=== PATIENT | female | born 1970 | race Two or more races ===

== ENCOUNTER 2021-07-24 05:49 | Inpatient (IN) | payer OTHER, MEDICAID ==
[~2021-07-24] VITALS: Ht 160 cm; Wt 102.1 kg
[2021-07-24] MEDS ORDERED: IPRATROPIUM BROMIDE (0.02%) 0.5MG/2.5ML NEB HHN STA (06:20)
[2021-07-24] MEDS ORDERED: NITROGLYCERIN OINT 1GM/INCH UDPKT TD ONE (06:30)
[2021-07-24 08:04] LABS: HEMOGLOBIN. 11.7 g/dL (12.0-16.0); MEAN CORPUSCULAR HEMOGLOBIN 21.3 pg (28.0-32.0); MEAN CORPUSCULAR VOLUME 67.4 fL (81.0-99.0); RED CELL DISTRIBUTION WIDTH 16.5 % (11.6-14.6)
[2021-07-24 08:07] LABS: CHLORIDE 108 mEq/L (98-107)
[2021-07-24 09:08] LABS: PLATELET ESTIMATE NORMAL
[2021-07-24 09:09] LABS: MEAN PLATELET VOLUME 9.8 fl (7.4-10.4); PLATELET 182 x1000/uL (130-400)
[2021-07-24] MEDS ORDERED: DEXTROSE 50% WATER 50ML SYRINGE IV ONE (09:45)
[2021-07-24] MEDS ORDERED: ASPIRIN 81MG TABLET PO ONE (09:45)
[2021-07-24] MEDS ORDERED: ONDANSETRON HCL 4MG/2ML INJ IV PRN (10:30)
[2021-07-24] MEDS ORDERED: MAGNESIUM/ALUMINUM HYDROXIDE/SIMETHICONE 30ML UDC PO PRN (10:30)
[2021-07-24] MEDS ORDERED: HYDROCODONE/ACETAMINOPHEN 5/325MG TABLET PO PRN (10:30)
[2021-07-24] MEDS ORDERED: CLONIDINE 0.1MG TABLET PO PRN (10:30)
[2021-07-24] MEDS ORDERED: ENOXAPARIN 40MG/0.4ML SYR SUBCUT SCH (10:30)
[2021-07-24] MEDS ORDERED: GUAIFENESIN 200MG/10ML SUGAR FREE UDC PO PRN (10:30)
[2021-07-24] MEDS ORDERED: ACETAMINOPHEN 325MG TABLET PO PRN ×2 (10:30)
[2021-07-24] MEDS ORDERED: BISO5TAB13 PO (10:40)
[2021-07-24] MEDS ORDERED: CLOP75TA33 PO (10:40)
[2021-07-24] MEDS ORDERED: LOSA25TA26 PO (10:40)
[2021-07-24] MEDS ORDERED: TOPI50TA24 PO (10:40)
[2021-07-24] MEDS ORDERED: LEVE500T19 PO (10:40)
[2021-07-24] MEDS ORDERED: ATOR-2 PO (10:40)
[2021-07-24 10:57] LABS: CLARITY URINE CLEAR (CLEAR); COLOR URINE YELLOW (YELLOW); KETONES URINE NEGATIVE (NEGATIVE); LEUKOCYTE ESTERASE URINE NEGATIVE (NEGATIVE); NITRITE URINE NEGATIVE (NEGATIVE); OCCULT BLOOD URINE NEGATIVE (NEGATIVE); PROTEIN URINE NEGATIVE (NEGATIVE); SPECIFIC GRAVITY URINE 1.013 (1.005-1.030); UROBILINOGEN URINE 0.2 E.U./dL (0.2-1.0)
[2021-07-24] MEDS ORDERED: DEXTROSE 50% WATER 50ML SYRINGE IV PRN (11:15)
[2021-07-24] MEDS: BLOOD SUGAR DIAGNOSTIC STRIP TEST SCH ×3 (12:07→20:45)
[2021-07-24] MEDS: INSULIN LISPRO 100 UNITS/ML SUBCUT SCH ×3 (13:20→20:45)
[2021-07-24] MEDS: ENOXAPARIN 30MG/0.3ML SYR SUBCUT SCH ×2 (13:38→21:04)
[2021-07-24 16:00] VITALS: BP 129/69
[2021-07-24 16:30] VITALS: BP 129/63
[2021-07-24] MEDS ORDERED: NALOXONE HCL 0.4MG/ML VIAL IV PRN (17:00)
[2021-07-24] MEDS: CLOPIDOGREL 75MG TABLET PO SCH (17:59)
[2021-07-24] MEDS: LEVETIRACETAM 500MG TABLET PO SCH (17:59)
[2021-07-24 20:00] VITALS: BP 132/71
[2021-07-24] MEDS: ATORVASTATIN CALCIUM 40MG TABLET PO SCH (21:04)
[2021-07-24] MEDS: TOPIRAMATE 100MG TABLET PO SCH (21:04)
[2021-07-25] VITALS: BP 132/66
[2021-07-25 04:00] VITALS: BP 130/74
[2021-07-25] MEDS: BLOOD SUGAR DIAGNOSTIC STRIP TEST SCH ×4 (06:47→21:07)
[2021-07-25] MEDS: INSULIN LISPRO 100 UNITS/ML SUBCUT SCH ×4 (07:15→21:00)
[2021-07-25 08:00] VITALS: BP 99/54
[2021-07-25 08:14] LABS: BASOPHILS % 0.4 % (0.0-2.0); EOSINOPHILS % 1.4 % (0.0-5.0); HEMATOCRIT. 34.2 % (36.0-48.0); HEMOGLOBIN. 10.7 g/dL (12.0-16.0); LYMPHOCYTES % 18.1 % (20.0-50.0); MEAN CORPUSCULAR HEMOGLOBIN 20.9 pg (28.0-32.0); MEAN CORPUSCULAR VOLUME 66.7 fL (81.0-99.0); MEAN PLATELET VOLUME 9.4 fl (7.4-10.4); MONOCYTES % 10.8 % (2.0-8.0); NEUTROPHILS % 69.3 % (40.0-76.0); PLATELET 173 x1000/uL (130-400); RED BLOOD CELL COUNT 5.12 mill/uL (4.2-5.4); RED CELL DISTRIBUTION WIDTH 16.3 % (11.6-14.6)
[2021-07-25 08:18] LABS: CHLORIDE 109 mEq/L (98-107)
[2021-07-25 08:27] LABS: TOTAL IRON BINDING CAPACITY 298 ug/dL (250-450)
[2021-07-25] MEDS: CLOPIDOGREL 75MG TABLET PO SCH (09:10)
[2021-07-25] MEDS: ENOXAPARIN 30MG/0.3ML SYR SUBCUT SCH ×2 (09:10→21:20)
[2021-07-25] MEDS: TOPIRAMATE 100MG TABLET PO SCH ×2 (09:10→21:15)
[2021-07-25] MEDS: LOSARTAN POTASSIUM 25 MG TABLET PO SCH (09:10)
[2021-07-25] MEDS: LEVETIRACETAM 500MG TABLET PO SCH ×2 (09:10→16:33)
[2021-07-25 12:00] VITALS: BP 124/71
[2021-07-25 16:00] VITALS: BP 130/67
[2021-07-25 20:00] VITALS: BP 103/63
[2021-07-25] MEDS: ATORVASTATIN CALCIUM 40MG TABLET PO SCH (21:15)
[2021-07-26] VITALS: BP 106/63
[2021-07-26 04:00] VITALS: BP 106/42
[2021-07-26 06:22] LABS: BASOPHILS % 0.3 % (0.0-2.0); EOSINOPHILS % 2.8 % (0.0-5.0); HEMATOCRIT. 32.2 % (36.0-48.0); HEMOGLOBIN. 10.3 g/dL (12.0-16.0); LYMPHOCYTES % 40.9 % (20.0-50.0); MEAN CORPUSCULAR HEMOGLOBIN 21.3 pg (28.0-32.0); MEAN CORPUSCULAR VOLUME 66.7 fL (81.0-99.0); MEAN PLATELET VOLUME 9.4 fl (7.4-10.4); MONOCYTES % 13.4 % (2.0-8.0); NEUTROPHILS % 42.6 % (40.0-76.0); PLATELET 173 x1000/uL (130-400); RED BLOOD CELL COUNT 4.82 mill/uL (4.2-5.4); RED CELL DISTRIBUTION WIDTH 16.4 % (11.6-14.6)
[2021-07-26] MEDS: BLOOD SUGAR DIAGNOSTIC STRIP TEST SCH (06:27)
[2021-07-26] MEDS: INSULIN LISPRO 100 UNITS/ML SUBCUT SCH (06:28)
[2021-07-26 07:00] LABS: CHLORIDE 112 mEq/L (98-107)
[2021-07-26 07:09] LABS: PHOSPHORUS 3.5 mg/dL (2.5-4.9)
[2021-07-26 07:55] VITALS: BP 135/78
[2021-07-26] MEDS: LEVETIRACETAM 500MG TABLET PO SCH (08:51)
[2021-07-26] MEDS: LOSARTAN POTASSIUM 25 MG TABLET PO SCH (08:51)
[2021-07-26] MEDS: CLOPIDOGREL 75MG TABLET PO SCH (08:51)
[2021-07-26] MEDS: TOPIRAMATE 100MG TABLET PO SCH (08:51)
[2021-07-26] MEDS: ENOXAPARIN 30MG/0.3ML SYR SUBCUT SCH (08:51)
[2021-07-26] MEDS ORDERED: FERROUS SULFATE 325MG TABLET PO NR (10:00)
[2021-07-26 12:00] VITALS: BP 118/73
[2021-07-26] MEDS ORDERED: FERR-63 PO ×2 (12:05→12:07)
[2021-07-26 12:51] VITALS: BP 118/73
[2021-07-26 16:16] LABS: PLATELET ESTIMATE NORMAL
[2021-07-27] MEDS ORDERED: FERROUS SULFATE 325MG TABLET PO SCH (09:00)
== END 2021-07-26 14:15 | disposition home or self-care (01) | DRG 639 ==
LOC: ER 05:49 → 5WST 09:38 → EDBEDREQTM 09:58 → EDBEDREQ 09:58 → EDBEDREQSVC 09:58 → SUPCPDRO 10:04
PROVIDERS: ADMIT Internal Medicine; ATTEND Internal Medicine
DX: E11.649 Type 2 diabetes mellitus with hypoglycemia without coma (principal); R07.89 Other chest pain; I10 Essential (primary) hypertension; I25.10 Atherosclerotic heart disease of native coronary artery without angina pectoris; G40.409 Other generalized epilepsy and epileptic syndromes, not intractable, without status epilepticus; Z20.822 Contact with and (suspected) exposure to COVID-19; E66.01 Morbid (severe) obesity due to excess calories; E78.5 Hyperlipidemia, unspecified; Z79.4 Long term (current) use of insulin; Z82.49 Family history of ischemic heart disease and other diseases of the circulatory system; I25.2 Old myocardial infarction; Z68.39 Body mass index [BMI] 39.0-39.9, adult
CPT/HCPCS: 36415; 71045; 80048; 80053; 81003; 82728; 82962; 83036; 83525; 83540; 83550; 83605; 83735; 84100; 84145; 84484; 85025; 87426; 93005; 99291; J1650

== ENCOUNTER 2021-10-10 10:59 | Emergency (ER) | payer MEDICAID, OTHER ==
[~2021-10-10] VITALS: Ht 167.6 cm; Wt 94.5 kg
[~2021-10-10 10:59] MED LIST: ATOR-2 PO; BISO5TAB13 PO; CLOP75TA33 PO; FERR-63 PO; LEVE500T19 PO; LOSA25TA26 PO; TOPI50TA24 PO
[2021-10-10] MEDS ORDERED: ACTIVATED CHARCOAL 50 G/240 ML TUBE PO ONE (11:30)
[2021-10-10] MEDS ORDERED: SODIUM CHLORIDE 0.9% 1,000 ML IV ONE (11:30)
[2021-10-10] MEDS ORDERED: FOLIC ACID 1 MG, THIAMINE HCL 100 MG, MVI, ADULT NO.1 10 ML in DEXTROSE 5% WATER 1,000 ML IV ONE ×4 (11:30)
[2021-10-10] MEDS ORDERED: ONDANSETRON HCL 4MG/2ML INJ IV ONE (11:45)
[2021-10-10] MEDS ORDERED: LORAZEPAM 2MG/ML CPJ IV ONE (12:15)
[2021-10-10 12:41] LABS: CHLORIDE 110 mEq/L (98-107)
[2021-10-10 12:45] LABS: ETHANOL BLOOD < 10 mg/dL
[2021-10-10 12:46] LABS: BASOPHILS % 0.3 % (0.0-2.0); EOSINOPHILS % 1.4 % (0.0-5.0); HEMATOCRIT. 35.1 % (36.0-48.0); HEMOGLOBIN. 11.2 g/dL (12.0-16.0); LYMPHOCYTES % 26.7 % (20.0-50.0); MEAN CORPUSCULAR HEMOGLOBIN 21.8 pg (28.0-32.0); MEAN CORPUSCULAR VOLUME 68.6 fL (81.0-99.0); MEAN PLATELET VOLUME 8.5 fl (7.4-10.4); MONOCYTES % 7.5 % (2.0-8.0); NEUTROPHILS % 64.1 % (40.0-76.0); PLATELET 172 x1000/uL (130-400); RED BLOOD CELL COUNT 5.12 mill/uL (4.2-5.4); RED CELL DISTRIBUTION WIDTH 16.3 % (11.6-14.6)
[2021-10-10 12:58] LABS: INR 1.1; PARTIAL THROMBOPLASTIN TIME 28.2 sec (23.4-31.0); PROTHROMBIN TIME 11.9 sec (9.6-11.0)
[2021-10-10 13:10] LABS: CLARITY URINE CLEAR (CLEAR); COLOR URINE YELLOW (YELLOW); KETONES URINE NEGATIVE (NEGATIVE); LEUKOCYTE ESTERASE URINE NEGATIVE (NEGATIVE); NITRITE URINE NEGATIVE (NEGATIVE); OCCULT BLOOD URINE NEGATIVE (NEGATIVE); PROTEIN URINE NEGATIVE (NEGATIVE); SPECIFIC GRAVITY URINE 1.028 (1.005-1.030); UROBILINOGEN URINE 0.2 E.U./dL (0.2-1.0)
[2021-10-10 13:20] LABS: *BARBITURATES SCREEN URINE NEGATIVE (NEGATIVE); *COCAINE SCREEN URINE NEGATIVE (NEGATIVE)
[2021-10-10 13:21] LABS: CANNABINOID URINE SCREEN NEGATIVE (NEGATIVE); PHENCYCLIDINE URINE SCREEN NEGATIVE (NEGATIVE)
[2021-10-10 13:31] LABS: METHADONE URINE SCREEN NEGATIVE (NEGATIVE); OPIATES URINE SCREEN NEGATIVE (NEGATIVE)
[2021-10-10 13:34] LABS: *AMPHETAMINES SCREEN URINE NEGATIVE (NEGATIVE)
[2021-10-10 13:35] LABS: *BENZODIAZEPINES SCREEN URINE NEGATIVE (NEGATIVE)
[2021-10-10 13:44] LABS: HCG SCREEN NEGATIVE
[2021-10-10] MEDS ORDERED: DEXT 5% IV NR ×2 (13:45→14:45)
[2021-10-10] MEDS ORDERED: ACETYLCYSTEINE IV NR ×2 (13:45→14:45)
[2021-10-10] MEDS ORDERED: WATER IV NR ×2 (13:45→14:45)
[2021-10-10 14:08] LABS: PLATELET ESTIMATE NORMAL
[2021-10-10 15:13] VITALS: BP 144/74
[2021-10-10] MEDS ORDERED: WATER IV SCH (19:00)
[2021-10-10] MEDS ORDERED: DEXTROSE 5% IV SCH (19:00)
[2021-10-10] MEDS ORDERED: ACETYLCYSTEINE IV SCH (19:00)
== END 2021-10-10 16:11 | disposition short-term general hospital (02) ==
LOC: ER 11:06 → CANBEDREQ 23:53
DX: T39.1X2A Poisoning by 4-Aminophenol derivatives, intentional self-harm, initial encounter (principal); T38.3X2A Poisoning by insulin and oral hypoglycemic [antidiabetic] drugs, intentional self-harm, initial encounter; I11.0 Hypertensive heart disease with heart failure; I50.9 Heart failure, unspecified; E11.9 Type 2 diabetes mellitus without complications; I25.2 Old myocardial infarction; G40.909 Epilepsy, unspecified, not intractable, without status epilepticus; F99 Mental disorder, not otherwise specified; E87.8 Other disorders of electrolyte and fluid balance, not elsewhere classified; Z86.73 Personal history of transient ischemic attack (TIA), and cerebral infarction without residual deficits; Y92.018 Other place in single-family (private) house as the place of occurrence of the external cause
CPT/HCPCS: 36415; 80053; 80305; 80307; 80320; 80329; 81003; 82962; 84703; 85025; 85610; 85730; 87426; 93005; 96361; 96365; 96375; 99291; J0132; J2060; J2405; J3411; J3490; J7030; J7060; J7070; G0480

== ENCOUNTER 2022-11-01 10:55 | Emergency (ER) | payer OTHER, MEDICAID ==
[~2022-11-01] VITALS: Ht 162.6 cm; Wt 99.9 kg
[~2022-11-01 10:55] MED LIST changes: +TOPI-255 PO; -TOPI50TA24 PO
[2022-11-01] MEDS ORDERED: ASPIRIN 325MG EC TABLET PO ONE (11:30)
[2022-11-01 11:47] LABS: BASOPHILS % 0.1 % (0.0-2.0); EOSINOPHILS % 1.3 % (0.0-5.0); HEMATOCRIT. 32.7 % (36.0-48.0); HEMOGLOBIN. 10.5 g/dL (12.0-16.0); LYMPHOCYTES % 35.6 % (20.0-50.0); MEAN CORPUSCULAR HEMOGLOBIN 22.2 pg (28.0-32.0); MEAN CORPUSCULAR VOLUME 69.1 fL (81.0-99.0); MEAN PLATELET VOLUME 8.8 fl (7.4-10.4); PLATELET 168 x1000/uL (130-400); RED BLOOD CELL COUNT 4.73 mill/uL (4.2-5.4); RED CELL DISTRIBUTION WIDTH 14.7 % (11.6-14.6)
[2022-11-01 11:52] LABS: CHLORIDE 105 mEq/L (98-107)
[2022-11-01 12:00] LABS: ETHANOL BLOOD < 10 mg/dL
[2022-11-01 12:35] LABS: INR 1.1
[2022-11-01 13:15] LABS: PLATELET ESTIMATE NORMAL
[2022-11-01] MEDS ORDERED: IOHEXOL-350 100 ML BOTTLE ONE (14:11)
[2022-11-01 15:37] LABS: CLARITY URINE CLEAR (CLEAR); COLOR URINE YELLOW (YELLOW); KETONES URINE NEGATIVE (NEGATIVE); LEUKOCYTE ESTERASE URINE NEGATIVE (NEGATIVE); NITRITE URINE NEGATIVE (NEGATIVE); OCCULT BLOOD URINE NEGATIVE (NEGATIVE); PH URINE 5.5 (4.5-8.0); PROTEIN URINE NEGATIVE (NEGATIVE); UROBILINOGEN URINE 0.2 E.U./dL (0.2-1.0)
[2022-11-01 16:17] LABS: *AMPHETAMINES SCREEN URINE NEGATIVE (NEGATIVE); *BARBITURATES SCREEN URINE NEGATIVE (NEGATIVE); *BENZODIAZEPINES SCREEN URINE NEGATIVE (NEGATIVE); *COCAINE SCREEN URINE NEGATIVE (NEGATIVE); CANNABINOID URINE SCREEN NEGATIVE (NEGATIVE); METHADONE URINE SCREEN NEGATIVE (NEGATIVE); OPIATES URINE SCREEN NEGATIVE (NEGATIVE); PHENCYCLIDINE URINE SCREEN NEGATIVE (NEGATIVE)
[2022-11-01 18:30] VITALS: BP 134/67
== END 2022-11-01 18:49 | disposition short-term general hospital (02) ==
LOC: ER 11:23 → CANBEDREQ 13:09 → ER 18:49
DX: I63.9 Cerebral infarction, unspecified (principal); I11.0 Hypertensive heart disease with heart failure; I50.9 Heart failure, unspecified; E11.9 Type 2 diabetes mellitus without complications; I25.2 Old myocardial infarction; Z20.822 Contact with and (suspected) exposure to COVID-19
CPT/HCPCS: 36415; 70450; 70496; 70498; 71045; 80053; 80305; 80320; 81003; 85025; 85610; 87426; 93005; 99291; C9803; Q9967; G0480

== ENCOUNTER 2025-03-14 20:58 | Emergency (ER) | payer OTHER ==
[~2025-03-14] VITALS: Ht 165.1 cm; Wt 104.0 kg
[~2025-03-14 20:58] MED LIST changes: -TOPI-255 PO; +TOPI-95 PO
[2025-03-14 21:05] VITALS: O2SAT 98
[2025-03-14] MEDS: SODIUM CHLORIDE 0.9% 1,000 ML IV ONE (21:45)
[2025-03-14 22:17] LABS: BASOPHILS % 0.3 % (0.0-2.0); EOSINOPHILS % 2.7 % (0.0-5.0); HEMATOCRIT. 35.1 % (36.0-48.0); HEMOGLOBIN. 11.2 g/dL (12.0-16.0); LYMPHOCYTES % 32.3 % (20.0-50.0); MEAN PLATELET VOLUME 9.1 fl (7.4-10.4); MONOCYTES % 8.6 % (2.0-8.0); NEUTROPHILS % 56.1 % (40.0-76.0); PLATELET 166 x1000/uL (130-400); RED BLOOD CELL COUNT 5.19 mill/uL (4.2-5.4); RED CELL DISTRIBUTION WIDTH 14.0 % (11.6-14.6)
[2025-03-14 22:18] LABS: ADD RBC MORPHOLOGY YES
[2025-03-14 22:27] LABS: HCG SCREEN NEGATIVE
[2025-03-14 22:29] LABS: INR 1.1
[2025-03-14 22:30] LABS: CREATININE 0.8 mg/dL (0.6-1.0); UREA NITROGEN BLOOD 8 mg/dL (9-23)
[2025-03-14 22:31] LABS: ASPARTATE AMINOTRANSFERASE 13 IU/L (<34); TROPONIN I HIGH SENSITIVITY < 4 ng/L (3.0-34)
[2025-03-14 22:32] LABS: BILIRUBIN DIRECT < 0.1 mg/dL (<=3.0); BILIRUBIN TOTAL 0.2 mg/dL (0.1-1.0); PROTEIN TOTAL 6.4 g/dL (6.0-8.3)
[2025-03-14 22:34] LABS: PLATELET ESTIMATE NORMAL
[2025-03-15] MEDS: ASPIRIN 325MG EC TABLET PO ONE (00:33)
[2025-03-15 02:08] VITALS: BP 140/89; PULSE 85; RESP 19; TEMP 36.7; O2SAT 100
== END 2025-03-15 02:25 | disposition short-term general hospital (02) ==
LOC: ER 20:58 → EDBEDREQ 21:52 → ER 03-15 02:25 → CMPBEDREQ 03-15 04:37
DX: R55 Syncope and collapse (principal); R06.02 Shortness of breath; R05.9 Cough, unspecified; G40.909 Epilepsy, unspecified, not intractable, without status epilepticus; E11.9 Type 2 diabetes mellitus without complications; I11.0 Hypertensive heart disease with heart failure; I50.9 Heart failure, unspecified; Z79.899 Other long term (current) drug therapy; Z86.73 Personal history of transient ischemic attack (TIA), and cerebral infarction without residual deficits
CPT/HCPCS: 99285; 71045; 80076; 80048; 82010; 84703; 83880; 85025; 85379; 85610; 85730; 86850; 86900; 86901; 84484; 36415; 93005; J7030